=== PATIENT | male | born 1970 | race Caucasian/White ===

== ENCOUNTER 2023-09-27 22:12 | Emergency (ER) | payer BC ==
[2023-09-27] MEDS ORDERED: Lidocaine/Epineph/Tetracaine 3 ML Syringe TOP ONE (22:35)
[2023-09-27] MEDS ORDERED: Lidocaine 1% 5 ML VIAL INJECT ONE (23:15)
[2023-09-28] MEDS ORDERED: Bacitracin Oint 1 GM U/D Packet TOP ONE (00:27)
== END 2023-09-28 00:42 | disposition home or self-care (01) ==
LOC: MW.ED 22:12
DX: S61.213A Laceration without foreign body of left middle finger without damage to nail, initial encounter (principal); W01.198A Fall on same level from slipping, tripping and stumbling with subsequent striking against other object, initial encounter
CPT/HCPCS: 12001; 99282; A9270; 99283; J3490

== ENCOUNTER 2024-09-16 15:54 | Emergency (ER) | payer BC ==
[2024-09-16 16:51] LABS: HEMATOCRIT 44.9 % (42.0-52.0); MEAN CORPUSCULAR HEMOGLOBIN 29.2 pg (28.0-32.0); MEAN CORPUSCULAR HGB CONC 33.4 g/dL (32.0-36.0); MEAN CORPUSCULAR VOLUME 87.5 fL (83.0-99.0); MEAN PLATELET VOLUME 9.4 fL (9.4-12.4); PLATELET COUNT,PLT 240 K/uL (150-400); RED BLOOD CELL COUNT 5.13 M/uL (4.52-5.90); WHITE BLOOD CELL COUNT,WBC 17.58 K/uL (3.9-11.3)
[2024-09-16] MEDS: Ampicillin/Sulbactam Na 3 GM in Sodium Chloride 0.9% 100 ML IV STA (16:55)
[2024-09-16] MEDS: Ketorolac 30 MG/ML SDV IVPUSH STA (16:56)
[2024-09-16 17:11] LABS: A/G RATIO 0.7 (0.9-1.6); ALBUMIN 3.2 g/dL (3.4-5.0); BILIRUBIN TOTAL 0.3 mg/dL (0.2-1.0); CALCIUM 9.5 mg/dL (8.5-10.1); CARBON DIOXIDE,CO2 31.6 mmol/L (21.0-32.0); EST CRCL DRUG DOSING (CG) 100.93 mL/min; POTASSIUM,K 4.5 mmol/L (3.5-5.1); PROTEIN TOTAL,TP 7.7 g/dL (6.4-8.2)
[2024-09-16 17:12] LABS: BASOPHILS ABSOLUTE MAN 0.18 K/uL (0.00-0.20); BASOPHILS PERCENT MAN 1 % (0-1); LYMPHOCYTES ABSOLUTE MAN 2.29 K/uL (1.00-4.80); LYMPHOCYTES PERCENT MAN 13 % (24-44); MONOCYTES ABSOLUTE MAN 1.23 K/uL (0.00-0.80); MONOCYTES PERCENT MAN 7 % (0-8); SEG NEUTROPHILS ABSOLUTE MAN 13.89 K/uL (1.80-7.70); SEG NEUTROPHILS PERCENT MAN 79 % (41-71)
[2024-09-16] MEDS: Iopamidol 755 Mg/ML 100 ML Bottle IVPUSH ONE (17:18)
== END 2024-09-16 18:47 | disposition home or self-care (01) ==
LOC: MW.ED 15:54
DX: J36 Peritonsillar abscess (principal); I10 Essential (primary) hypertension; Z79.899 Other long term (current) drug therapy; Z75.8 Other problems related to medical facilities and other health care
CPT/HCPCS: 36415; 70491; 80053; 85025; 87651; 96365; 96366; 96375; 99284; J0295; J1100; J1885; J3490; Q9967